=== PATIENT | female | born 1995 | race African-American/Black ===

== ENCOUNTER 2016-11-12 13:10 | Emergency (ER) | payer BC ==
[~2016-11-12] VITALS: Ht 157.5 cm; Wt 51.0 kg
[2016-11-12 13:16] VITALS: TEMP 36.7; Ht 157.5 cm; Wt 51.0 kg
[2016-11-12] MEDS ORDERED: KETOROLAC TROMETHAMINE 30 MG/ML VIAL IV STA (13:32)
[2016-11-12] MEDS ORDERED: SODIUM CHLORIDE 0.9% 1000ML 1,000 ML IV STA (13:32)
[2016-11-12 13:58] LABS: BASO % 0.6 %; BASO ABS # 0.02 K/uL (0-0.2); EOS % 1.2 %; HEMATOCRIT 36.2 % (37-47); LYMPH % 45.9 %; LYMPH ABS # 1.58 K/uL (1.2-3.4); MEAN CELL VOLUME 67.8 fL (80-100); MEAN CORPUSCULAR HEMOGLOBIN 22.5 pg (25-34); MEAN CORPUSCULAR HGB CONC 33.1 g/dl (32-36); MEAN PLATELET VOLUME 10.4 fL (7.4-10.4); MONO % 7.6 %; NEUT % 44.7 %; PLATELET COUNT 200 K/uL (130-400); RED BLOOD COUNT 5.34 M/uL (4.2-5.4); WHITE BLOOD COUNT 3.44 K/uL (4.8-10.8)
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
[2016-11-12] MEDS ORDERED: MOME16.7 (14:02)
[2016-11-12] MEDS ORDERED: MONT4GRA PO (14:02)
[2016-11-12 14:11] LABS: URINE APPEARANCE CLEAR (CLEAR); URINE BILIRUBIN NEG (NEG); URINE COLOR DK YELLOW; URINE NITRITE NEG (NEG); URINE PH 5.5 (4.5-7.5); URINE SPECIFIC GRAVITY 1.031 (1.000-1.030); UROBILINOGEN NEG (NEG)
[2016-11-12 14:14] LABS: BUN/CREATININE RATIO 15.1 (10-20); CALCIUM 9.4 mg/dl (8.5-10.1); CREATININE 0.65 mg/dl (0.60-1.20); POTASSIUM 3.3 mmol/L (3.5-5.1)
[2016-11-12 14:19] LABS: COMPLETE YES; HYPOCHROMIA PRESENT; MICROCYTOSIS PRESENT; OVALOCYTES 1+
[2016-11-12 14:23] LABS: MANUAL MICROSCOPIC REQUIRED? NO; REVIEW REQ? NO
--- NOTE | 2016-11-12 14:42 | DIAGNOSTIC IMAGING REPORT ---
CT SCAN OF THE ABDOMEN AND PELVIS WITHOUT IV CONTRAST CLINICAL HISTORY: Bilateral flank pain, left greater than right. COMPARISON STUDY: No priors. TECHNIQUE: CT scan of the abdomen and pelvis is performed from the lung bases to the proximal femora. Images are reviewed in the axial, sagittal, and coronal planes. IV contrast was not administered for this examination as per the referring clinician. The examination is degraded by lack of oral and IV contrast as well as by a paucity of intraperitoneal fat. A dose lowering technique was utilized adhering to the principles of ALARA. CT DOSE: 271.26 mGy.cm FINDINGS: Lung bases: The heart is normal in size and without pericardial effusion. The lung bases are clear. Liver: The unenhanced liver is normal in size, contour, and attenuation. There is no intrahepatic biliary ductal dilatation. Gallbladder: Unremarkable. Spleen: Normal in size and attenuation. Pancreas: The unenhanced pancreas is grossly unremarkable. Adrenal glands: Unremarkable. Kidneys: The unenhanced kidneys are normal in size and without hydronephrosis. There are no renal calculi identified. There is no evidence of contour deforming renal mass lesion. Abdominal vasculature: The abdominal aorta is normal in course and caliber. Bowel: The small bowel and colon are normal in course and caliber. The appendix is normal as visualized. Peritoneum: There is no intraperitoneal free air or abdominal ascites. There is a small fat-containing umbilical hernia. Lymphadenopathy: None. Pelvic viscera: The bladder is decompressed and grossly unremarkable. Intrauterine device is present in the lower uterine segment and cervix. The uterus is otherwise normal in appearance. No adnexal lesion is seen. Numerous phleboliths are observed in the pelvis. Skeletal structures: No lytic or blastic lesions are seen. IMPRESSION: 1. No acute infectious or inflammatory findings are identified in the abdomen or pelvis. 2. An intrauterine device is present, located in the lower uterine segment and possibly the cervix. Cortical clinically for appropriate positioning. Electronically signed by: Jenaro Child M.D. 11/12/2016 2:41 PM Dictated Date/Time: 11/12/2016 2:35 PM
[2016-11-12 16:01] VITALS: BP 97/64; PULSE 57; O2SAT 100
== END 2016-11-12 16:01 | disposition home or self-care (01) ==
LOC: C.EDB 13:13 → C.EDC 16:01
DX: M54.5 Low back pain (principal); E86.0 Dehydration; Z79.899 Other long term (current) drug therapy

== ENCOUNTER → 2016-11-14 | Outpatient (CLI) | payer BC ==
[~2016-11-14] MED LIST: MOME16.7; MONT4GRA PO
== END | disposition home or self-care (01) ==
LOC: C.PAPS 16:36
PROVIDERS: ATTEND Physician Assistant
DX: Z01.411 Encounter for gynecological examination (general) (routine) with abnormal findings (principal); R87.612 Low grade squamous intraepithelial lesion on cytologic smear of cervix (LGSIL)

== ENCOUNTER → 2016-11-14 | Outpatient (CLI) | payer BC ==
[2016-11-17 10:12] LABS: CHLAMYDIA TRACH RNA*** NOT DETECTED (NOT DETECTED); GC (NEIS GONORRHOEAE)RNA** NOT DETECTED (NOT DETECTED)
== END | disposition home or self-care (01) ==
LOC: C.LABSPEC 17:06
PROVIDERS: ATTEND Physician Assistant
DX: Z01.419 Encounter for gynecological examination (general) (routine) without abnormal findings (principal)

== ENCOUNTER → 2017-02-18 | Outpatient (CLI) | payer BC ==
[~2017-02-18] MED LIST changes: +HYDR-5688 PO; +ONDA4TAB10 SL
== END | disposition home or self-care (01) ==
LOC: C.LABSPEC 13:29
PROVIDERS: ATTEND Physician Assistant
DX: L29.8 Other pruritus (principal)

== ENCOUNTER → 2017-03-06 | Outpatient (CLI) | payer BC ==
[~2017-03-06] MED LIST changes: -HYDR-5688 PO; -ONDA4TAB10 SL
== END | disposition home or self-care (01) ==
LOC: C.LABSPEC 10:54
PROVIDERS: ATTEND Physician Assistant
DX: Z30.430 Encounter for insertion of intrauterine contraceptive device (principal)

== ENCOUNTER 2017-03-31 09:34 | Emergency (ER) | payer BC ==
[~2017-03-31] VITALS: Ht 157.5 cm; Wt 53.0 kg
[2017-03-31 09:36] VITALS: Ht 157.5 cm; Wt 53.0 kg
[2017-03-31] MEDS ORDERED: MoRPHine SULFATE 10 MG/ML CARP/VIAL IV STA (09:58)
[2017-03-31] MEDS ORDERED: ONDANSETRON INJ 2 MG/ML 2 ML VIAL IV STA (09:58)
[2017-03-31] MEDS ORDERED: OPTIRAY 320 IV PRN (10:15)
[2017-03-31 10:59] LABS: BASO % 0.3 %; BASO ABS # 0.02 K/uL (0-0.2); EOS % 0.2 %; EOS ABS # 0.01 K/uL (0-0.5); HEMATOCRIT 32.6 % (37-47); HEMOGLOBIN 10.3 g/dL (12.0-16.0); IG# 0.01 K/uL (0.00-0.02); LYMPH % 14.7 %; LYMPH ABS # 0.92 K/uL (1.2-3.4); MEAN CELL VOLUME 69.4 fL (80-100); MEAN CORPUSCULAR HEMOGLOBIN 21.9 pg (25-34); MEAN CORPUSCULAR HGB CONC 31.6 g/dl (32-36); MEAN PLATELET VOLUME 10.4 fL (7.4-10.4); MONO % 3.5 %; MONO ABS # 0.22 K/uL (0.11-0.59); NEUT % 81.1 %; NEUT ABS # 5.09 K/uL (1.4-6.5); PLATELET COUNT 202 K/uL (130-400); RED CELL DISTRIBUTION WIDTH CV 15.4 % (11.5-14.5); RED CELL DISTRIBUTION WIDTH SD 38.6 fL (36.4-46.3); WHITE BLOOD COUNT 6.27 K/uL (4.8-10.8)
[2017-03-31 11:09] LABS: ALBUMIN 3.9 gm/dl (3.4-5.0); ALT/SGPT 17 U/L (12-78); BLOOD UREA NITROGEN 9 mg/dl (7-18); CALCIUM 8.8 mg/dl (8.5-10.1); CARBON DIOXIDE 24 mmol/L (21-32); CREATININE 0.61 mg/dl (0.60-1.20); GLUCOSE 119 mg/dl (70-99); LIPASE 93 U/L (73-393); POTASSIUM 3.5 mmol/L (3.5-5.1); SODIUM 135 mmol/L (136-145)
[2017-03-31 11:12] LABS: ALKALINE PHOSPHATASE 45 U/L (45-117); AST/SGOT 13 U/L (15-37)
--- NOTE | 2017-03-31 12:36 | DIAGNOSTIC IMAGING REPORT ---
ABD/PELVIS IV AND ORAL CONT CT DOSE: 299.10 mGycm HISTORY: Pain. Pelvic pain. lower abdominal pain TECHNIQUE: Multiaxial CT images of the abdomen and pelvis were performed following the use of intravenous and oral contrast. A dose lowering technique was utilized adhering to the principles of ALARA. COMPARISON STUDY: 11/12/2016 FINDINGS: Lung bases are clear. There is a moderate amount of fluid and/or blood around the liver as well as paracolic gutter regions. More significant fluid is identified within the pelvis and pelvic cul-de-sac. There is a 3.5 cm complex and/or hemorrhagic right ovarian cyst and/or ovarian cystic mass. Intrauterine device is located appropriately within the central uterine canal. This represents an adjustment as compared to the prior exam. Left ovary is not well-defined. The appendix is identified in part and appears to be unremarkable. Bowel pattern overall is considered nonobstructive. Diagnostic considerations include a ruptured complex right ovarian or hemorrhagic cyst, ruptured ectopic , versus hemorrhagic nodular process such as a cystic endometrioma. Although the appendix is not well seen, its visualized components appear unremarkable making appendicitis considerably less likely. IMPRESSION: 1. Moderate to rather significant amount of complex ascites and/or blood within the pelvis and to a lesser extent abdomen. 2. This is associated with a 3.5 cm complex partially cystic and or hemorrhagic right ovarian cyst, cystic lesion, or the possibility of a tubal/ectopic if the patient has a positive test. 3. Visualized components of the appendix are unremarkable. 4. Intrauterine device is now located appropriately within the central uterine canal. 5. Statistically, the appearance discussed above is most consistent with that of a hemorrhagic/ruptured ovarian cystic process. 6. This report was phoned to the emergency room The above report was generated using voice recognition software. It may contain grammatical, syntax or spelling errors. Electronically signed by: Roly Baez M.D. 03/31/2017 12:34 PM Dictated Date/Time: 03/31/2017 12:22 PM
[2017-03-31 13:37] VITALS: TEMP 36.8
[2017-03-31 13:38] LABS: HEMATOCRIT 31.5 % (37-47); HEMOGLOBIN 9.9 g/dL (12.0-16.0)
[2017-03-31] MEDS ORDERED: ONDA4TAB10 SL (14:02)
[2017-03-31] MEDS ORDERED: HYDR-5688 PO (14:02)
--- NOTE | 2017-03-31 14:03 | EMERGENCY ROOM VISIT NOTE ---
History First contact with patient: 09:49 Chief Complaint: ABDOMINAL PAIN Stated Complaint: SEVERE CRAMPING,DIARRHEA,VOMITING,MUSCLE PAIN,SOB Nursing Triage Summary: She relates that for one week she has had a decreased appetite and "not myself" . She relates that she was focused on it being an IUD problem because the first IUD came out. She relates that last night she had right lower quadrant pain that worsened at approximately 2230. Pain increases with movement. "I couldn't really even walk and I couldn't stand up straight until I took Ibuprofen this morning. " Chills, shaking, diarrhea, vomiting. History of Present Illness The patient is a 21 year old female who presents to the Emergency Room with complaints of diffuse abdominal pain. The patient states for the last week she has had a decreased appetite. Last night she had a sudden onset of worsening pain at approximately 10:30 of the right lower quadrant with increased pain with movement. The patient also states that she has been sweaty. The patient also states that she's had some lower abdominal cramping that felt like menstrual cramps but is now different. She had some nausea and vomiting. The patient denies any vaginal discharge or any vaginal bleeding. She thought at first it was that her IUD was dislodged since initially the symptoms were similar but now they are much worse. The patient called her doctor and they told her to come to the emergency room. The patient denies any urinary symptoms of frequency, urgency, dysuria or hematuria. The patient denies any history of kidney stones. Review of Systems 10 system review was performed and was negative unless stated otherwise history of present illness. Past Medical/Surgical History Asthma, hernia repair Social History Smoking Status: Never Smoker Alcohol Use: occasionally Drug Use: none Marital Status: single Housing Status: lives with significant other Occupation Status: employed Current/Historical Medications Scheduled Mometasone Furoate (Inhalation (Asmanex Hfa), HS Montelukast Sodium (Singulair), 1 PKT PO DAILY Physical Exam Vital Signs Date Time Temp Pulse Resp B/P (MAP) Pulse Ox O2 Delivery O2 Flow Rate FiO2 03/31/17 13:42 68 03/31/17 13:37 36.8 69 20 102/57 100 Room Air 03/31/17 11:40 66 16 114/60 100 Room Air 03/31/17 10:41 82 20 103/61 98 Room Air 03/31/17 09:36 36.7 75 16 105/72 98 Physical Exam GENERAL: 21-year-old female appears uncomfortable secondary to pain. MENTAL Status: Alert and oriented 3. MOUTH: Mucosa is moist NECK: Supple, no lymphadenopathy noted. No carotid bruits noted. LUNGS: Clear auscultation without wheezes rales or rhonchi. CARDIAC: Regular rate and rhythm without murmur. Pulses is full and equal throughout. BACK: No CVA tenderness noted. ABDOMEN: Positive bowel sounds all 4 quadrants. Firm. The patient has diffuse tenderness over the entire abdomen but increased tenderness with rebound in the right lower quadrant. EXTREMITIES: No cyanosis or edema noted. Medical Decision & Procedures ER Provider Diagnostic Interpretation: ABD/PELVIS IV AND ORAL CONT CT DOSE: 299.10 mGycm HISTORY: Pain. Pelvic pain. lower abdominal pain TECHNIQUE: Multiaxial CT images of the abdomen and pelvis were performed following the use of intravenous and oral contrast. A dose lowering technique was utilized adhering to the principles of ALARA. COMPARISON STUDY: 11/12/2016 FINDINGS: Lung bases are clear. There is a moderate amount of fluid and/or blood around the liver as well as paracolic gutter regions. More significant fluid is identified within the pelvis and pelvic cul-de-sac. There is a 3.5 cm complex and/or hemorrhagic right ovarian cyst and/or ovarian cystic mass. Intrauterine device is located appropriately within the central uterine canal. This represents an adjustment as compared to the prior exam. Left ovary is not well-defined. The appendix is identified in part and appears to be unremarkable. Bowel pattern overall is considered nonobstructive. Diagnostic considerations include a ruptured complex right ovarian or hemorrhagic cyst, ruptured ectopic , versus hemorrhagic nodular process such as a cystic endometrioma. Although the appendix is not well seen, its visualized components appear unremarkable making appendicitis considerably less likely. IMPRESSION: 1. Moderate to rather significant amount of complex ascites and/or blood within the pelvis and to a lesser extent abdomen. 2. This is associated with a 3.5 cm complex partially cystic and or hemorrhagic right ovarian cyst, cystic lesion, or the possibility of a tubal/ectopic if the patient has a positive test. 3. Visualized components of the appendix are unremarkable. 4. Intrauterine device is now located appropriately within the central uterine canal. 5. Statistically, the appearance discussed above is most consistent with that of a hemorrhagic/ruptured ovarian cystic process. 6. This report was phoned to the emergency room The above report was generated using voice recognition software. It may contain grammatical, syntax or spelling errors. Electronically signed by: Roly Baez M.D. 03/31/2017 12:34 PM Laboratory Results 03/31/17 10:35 Red Blood Count 4.70, Mean Corpuscular Volume 69.4, Mean Corpuscular Hemoglobin 21.9, Mean Corpuscular Hemoglobin Concent 31.6, Mean Platelet Volume 10.4, Neutrophils (%) (Auto) 81.1, Lymphocytes (%) (Auto) 14.7, Monocytes (%) (Auto) 3.5, Eosinophils (%) (Auto) 0.2, Basophils (%) (Auto) 0.3, Neutrophils # (Auto) 5.09, Lymphocytes # (Auto) 0.92, Monocytes # (Auto) 0.22, Eosinophils # (Auto) 0.01, Basophils # (Auto) 0.02 03/31/17 13:11 03/31/17 10:35 Test 03/31/17 10:35 03/31/17 11:55 White Blood Count 6.27 K/uL (4.8-10.8) Red Blood Count 4.70 M/uL (4.2-5.4) Hemoglobin 10.3 g/dL (12.0-16.0) Hematocrit 32.6 % (37-47) Mean Corpuscular Volume 69.4 fL (80-100) Mean Corpuscular Hemoglobin 21.9 pg (25-34) Mean Corpuscular Hemoglobin Concent 31.6 g/dl (32-36) Platelet Count 202 K/uL (130-400) Mean Platelet Volume 10.4 fL (7.4-10.4) Neutrophils (%) (Auto) 81.1 % Lymphocytes (%) (Auto) 14.7 % Monocytes (%) (Auto) 3.5 % Eosinophils (%) (Auto) 0.2 % Basophils (%) (Auto) 0.3 % Neutrophils # (Auto) 5.09 K/uL (1.4-6.5) Lymphocytes # (Auto) 0.92 K/uL (1.2-3.4) Monocytes # (Auto) 0.22 K/uL (0.11-0.59) Eosinophils # (Auto) 0.01 K/uL (0-0.5) Basophils # (Auto) 0.02 K/uL (0-0.2) RDW Standard Deviation 38.6 fL (36.4-46.3) RDW Coefficient of Variation 15.4 % (11.5-14.5) Immature Granulocyte % (Auto) 0.2 % Immature Granulocyte # (Auto) 0.01 K/uL (0.00-0.02) Large Platelets 2+ Ovalocytes 1+ Acanthocytes 1+ Anion Gap 8.0 mmol/L (3-11) Est Creatinine Clear Calc Drug Dose 115.4 ml/min Estimated GFR () > 150.0 Estimated GFR (Non- 129.6 BUN/Creatinine Ratio 14.6 (10-20) Calcium Level 8.8 mg/dl (8.5-10.1) Total Bilirubin 1.1 mg/dl (0.2-1) Direct Bilirubin 0.3 mg/dl (0-0.2) Aspartate Amino Transf (AST/SGOT) 13 U/L (15-37) Alanine Aminotransferase (ALT/SGPT) 17 U/L (12-78) Alkaline Phosphatase 45 U/L (45-117) Total Protein 7.0 gm/dl (6.4-8.2) Albumin 3.9 gm/dl (3.4-5.0) Lipase 93 U/L (73-393) Urine Color DK YELLOW Urine Appearance CLEAR (CLEAR) Urine pH 5.5 (4.5-7.5) Urine Specific [place] 1.029 (1.000-1.030) Urine Protein NEG (NEG) Urine Glucose (UA) NEG (NEG) Urine Ketones 1+ (NEG) Urine Occult Blood NEG (NEG) Urine Nitrite NEG (NEG) Urine Bilirubin NEG (NEG) Urine Urobilinogen NEG (NEG) Urine Leukocyte Esterase NEG (NEG) Medications Administered Medications (Trade) Dose Ordered Sig/Citlali Route Start Time Stop Time Status Last Admin Dose Admin Ondansetron HCl (Zofran Inj) 4 mg NOW STAT IV 03/31/17 09:58 03/31/17 10:01 DC 03/31/17 10:41 4 MG Morphine Sulfate (MoRPHine SULFATE INJ) 6 mg NOW STAT IV 03/31/17 09:58 03/31/17 10:01 DC 03/31/17 10:41 6 MG ED Course The patient was evaluated. IV access was obtained. CBC and differential, renal profile, LFTs and lipase levels were ordered. Urinalysis was ordered. Urine dip for was negative. The patient was given morphine 6 mg IV for pain and 4 mg IV for associated nausea. Labs were reviewed. The patient's hemoglobin was low at 10.3 and hematocrit low at 32.6. CT of the abdomen and pelvis was ordered and interpreted by the radiologist as above with most likely a right ruptured hemorrhagic cyst although could be endometrioma. Urinalysis revealed 1+ ketones otherwise no evidence of UTI. The patient was informed of the CT findings. The case was discussed with Dr. García who agree with treatment plan. Repeat hemoglobin and hematocrit were slightly decreased at 9.9 hemoglobin and 31.5 hematocrit. I consult to Dr. Logan who stated he felt the patient could go home and is always her pain was controlled which it has been controlled the entire time she's been in the ER with just a 6 of morphine. He stated they will see her in the office in 2 days for recheck unless she would worsen she should go back to the ER. This was relayed to the patient and she was in agreement with treatment plan. The patient was discharged home in stable condition with her boyfriend driving. Medical Decision Differential diagnosis include acute appendicitis, bowel obstruction, ectopic , ovarian cysts, endometriosis [place] Drug Monitoring Program Search Results: patient reviewed within database Medication Reconcilliation Current Medication List: was personally reviewed by sc Blood Pressure Screening Patient's blood pressure: Normal blood pressure Impression Primary Impression: hemorrhagic ovarian cyst rupture Additional Impression: Anemia Departure Information Dispostion Home / Self-Care Condition GOOD Prescriptions Hydrocodone/Acetaminophen 5MG/325MG ([place] 5MG/325MG) Tab 1-2 TABLET PO Q6 Y for Pain, #20 TAB For Initial Treatment Prov: Imelda Baez PA-C 03/31/17 Ondasetron Odt (ZOFRAN ODT) 4 Mg Tab 4 MG SL Q6H for Nausea, #10 TAB Prov: Imelda Baez PA-C 03/31/17 Referrals No Doctor, Assigned (PCP) Forms HOME CARE DOCUMENTATION FORM, IMPORTANT VISIT INFORMATION Patient Instructions [facility] Leona Exelis Additional Instructions Ibuprofen every 6 hours as needed for pain. Take [place] as needed for more severe pain. Do not drive while taking the [place]. Take Zofran as needed for nausea. Keep scheduled appointment with [facility] on . If you experience any severe uncontrolled abdominal pain, high fevers, uncontrolled nausea vomiting return to ER immediately. Problem Qualifiers Additional Impression: Anemia Anemia type: unspecified type Qualified Codes: D64.9 - Anemia, unspecified
[2017-03-31 14:39] VITALS: BP 93/53; PULSE 66; O2SAT 98
== END 2017-03-31 14:40 | disposition home or self-care (01) ==
LOC: C.EDB 09:35
DX: D64.9 Anemia, unspecified (principal); R10.31 Right lower quadrant pain; R82.4 Acetonuria; R63.0 Anorexia; R61 Generalized hyperhidrosis; R11.2 Nausea with vomiting, unspecified; J45.909 Unspecified asthma, uncomplicated; Z97.5 Presence of (intrauterine) contraceptive device

== ENCOUNTER → 2017-04-02 | Outpatient (CLI) | payer BC ==
[~2017-04-02] MED LIST changes: +HYDR-5688 PO; +ONDA4TAB10 SL
[2017-04-02 12:10] LABS: HEMATOCRIT 31.2 % (37-47); HEMOGLOBIN 9.8 g/dL (12.0-16.0); MEAN CELL VOLUME 69.8 fL (80-100); MEAN CORPUSCULAR HEMOGLOBIN 21.9 pg (25-34); MEAN CORPUSCULAR HGB CONC 31.4 g/dl (32-36); PLATELET COUNT 191 K/uL (130-400); RED CELL DISTRIBUTION WIDTH CV 15.4 % (11.5-14.5); RED CELL DISTRIBUTION WIDTH SD 38.6 fL (36.4-46.3)
== END | disposition home or self-care (01) ==
LOC: C.LAB1850 11:08
PROVIDERS: ATTEND Obstetrics & Gynecology
DX: N83.209 Unspecified ovarian cyst, unspecified side (principal)